=== PATIENT | female | born 1965 | race Asian ===

== ENCOUNTER 2017-06-29 18:23 | Emergency (ER) | payer BC ==
[~2017-06-29] VITALS: Ht 157.5 cm; Wt 55.3 kg
[2017-06-29] MEDS ORDERED: TYLENOL PO (18:55)
--- NOTE | 2017-06-29 20:44 | NUR ---
Patient discharged to home in stable conditon. Written and verbal after care instructions given. Patient verbalizes understanding of instructions.
== END 2017-06-29 20:51 | disposition home or self-care (01) ==
LOC: ER 18:23
DX: K04.7 Periapical abscess without sinus (principal); H92.01 Otalgia, right ear
CPT/HCPCS: A4663